=== PATIENT | male | born 1985 | race Hispanic/Latino ===

== ENCOUNTER 2021-11-18 21:11 | Emergency (ER) | payer SELFPAY | END 2021-11-18 22:54 | disposition home or self-care (01) | LOC: CSHERS 21:11 | DX: R04.0 Epistaxis (principal); R51.9 Headache, unspecified; I10 Essential (primary) hypertension; E11.9 Type 2 diabetes mellitus without complications; F17.200 Nicotine dependence, unspecified, uncomplicated | CPT/HCPCS: 36416; 99283 ==